=== PATIENT | female | born 1970 | race Caucasian/White ===

== ENCOUNTER 2016-06-22 09:58 | Emergency (ER) | payer MEDICAID ==
[~2016-06-22] VITALS: Ht 152.4 cm; Wt 114.1 kg
[~2016-06-22 09:58] MED LIST: ALBU0.63 NEB; ALBU6.7H INH; ALBU8.5H5 INH; FLUO40CA9 PO; FLUT12AE INH; FLUT1DIS IH; GABA600T2 PO; HYDR-3144 PO; HYDR25CA PO; IBUP200T5 PO; LEVO750T26 PO; LISI-170 PO; PRED20TA PO; TRAM200T2 PO; TRAZ100T15 PO; flexeril
[2016-06-22 10:04] VITALS: BP 165/105
[2016-06-22] MEDS ORDERED: KETOROLAC 30 MG/1 ML ONE (10:56)
[2016-06-22] MEDS ORDERED: KETOROLAC 30 MG/1 ML IM ONE (11:00)
== END 2016-06-22 11:57 | disposition home or self-care (01) ==
LOC: ED 11:52
DX: S83.92XA Sprain of unspecified site of left knee, initial encounter (principal); S39.012A Strain of muscle, fascia and tendon of lower back, initial encounter; L02.416 Cutaneous abscess of left lower limb; I10 Essential (primary) hypertension; J44.9 Chronic obstructive pulmonary disease, unspecified; Z90.49 Acquired absence of other specified parts of digestive tract; F17.200 Nicotine dependence, unspecified, uncomplicated; W07.XXXA Fall from chair, initial encounter; Y93.89 Activity, other specified; Y92.009 Unspecified place in unspecified non-institutional (private) residence as the place of occurrence of the external cause; Y99.9 Unspecified external cause status
CPT/HCPCS: 29505; 72110; 72170; 73564; 96372; 99284; J1885

== ENCOUNTER 2016-08-05 03:04 | Emergency (ER) | payer MEDICAID ==
[~2016-08-05] VITALS: Ht 152.4 cm; Wt 102.0 kg
[2016-08-05] MEDS ORDERED: LISI-167 PO (03:19)
[2016-08-05] MEDS ORDERED: NAPR220C PO (03:19)
[2016-08-05] MEDS ORDERED: GABA300C10 PO (03:19)
[2016-08-05] MEDS ORDERED: MORPHINE SULFATE 4 MG/ML, 1ML IVPush ONE (03:30)
[2016-08-05] MEDS ORDERED: MORPHINE SULFATE 4 MG/ML, 1ML ONE (03:37)
[2016-08-05 05:17] VITALS: BP 132/72
== END 2016-08-05 05:20 | disposition home or self-care (01) ==
LOC: ED 05:09
DX: M54.16 Radiculopathy, lumbar region (principal); I10 Essential (primary) hypertension; J44.9 Chronic obstructive pulmonary disease, unspecified
CPT/HCPCS: 96374

== ENCOUNTER 2018-03-11 09:32 | Emergency (ER) | payer MEDICAID ==
[~2018-03-11] VITALS: Ht 152.4 cm; Wt 100.0 kg
[~2018-03-11 09:32] MED LIST changes: +GABA300C10 PO; -HYDR-3144 PO; +HYDR-3245 PO; +IBUP-1484 PO; -IBUP200T5 PO; +LISI-167 PO; +NAPR220C PO; -TRAM200T2 PO; +TRAM200T35 PO; +TRAZ-137 PO; -TRAZ100T15 PO
[2018-03-11] MEDS ORDERED: ALUMINUM/MAG/SIMETHICONE 30 ML UDC ONE (09:49)
[2018-03-11] MEDS ORDERED: FAMOTIDINE 20 MG TABLET ONE (09:49)
[2018-03-11] MEDS ORDERED: HYDROmorphone 2 MG/ML, 1ML ONE (09:50)
[2018-03-11] MEDS ORDERED: HYDROmorphone 1 MG/ML, 1ML IM ONE (10:00)
[2018-03-11] MEDS ORDERED: ALUMINUM/MAG/SIMETHICONE 30 ML UDC PO PRN (10:00)
[2018-03-11] MEDS ORDERED: FAMOTIDINE 20 MG TABLET PO ONE (10:00)
[2018-03-11 10:42] VITALS: BP 153/79
== END 2018-03-11 11:48 | disposition home or self-care (01) ==
LOC: ED 09:56
DX: S76.211A Strain of adductor muscle, fascia and tendon of right thigh, initial encounter (principal); I10 Essential (primary) hypertension; J44.9 Chronic obstructive pulmonary disease, unspecified; F31.9 Bipolar disorder, unspecified; F41.1 Generalized anxiety disorder; Z90.49 Acquired absence of other specified parts of digestive tract; X58.XXXA Exposure to other specified factors, initial encounter; Y93.89 Activity, other specified; Y92.89 Other specified places as the place of occurrence of the external cause; Y99.8 Other external cause status
CPT/HCPCS: 73502; 96372; 99283; J1170

== ENCOUNTER 2018-03-20 11:29 | Emergency (ER) | payer MEDICAID ==
[~2018-03-20] VITALS: Ht 152.4 cm; Wt 106.1 kg
[2018-03-20 11:41] VITALS: BP 165/77
--- NOTE | 2018-03-20 12:01 | NUR ---
PT TO ROOM 7 W/ C/O BILAT HIP PAIN AND R HAND PAIN AFTER FALLING ON 03/11/18. PT VERBALIZES SHE IS CONCERNED THAT THERE IS SOMETHING WRONG W/ HER HAND. PT AMBULATORY W/ STEADY GAIT. FULL ROM TO BILAT LEGS. PT RESTING ON GURNEY. NADN. WARM BLANKET PROVIDED.
[2018-03-20] MEDS ORDERED: KETOROLAC 30 MG/1 ML ONE (12:15)
[2018-03-20] MEDS ORDERED: METHOCARBAMOL 750 MG TABLET ONE (12:15)
--- NOTE | 2018-03-20 12:21 | NUR ---
PT MEDICATED PER MAR AND TAKEN FOR XR.
[2018-03-20] MEDS ORDERED: KETOROLAC 30 MG/1 ML IM ONE (12:30)
[2018-03-20] MEDS ORDERED: METHOCARBAMOL 750 MG TABLET PO ONE (12:30)
--- NOTE | 2018-03-20 12:52 | NUR ---
PT CHART REVIEWED AND PLACED FOR RECHECK.
== END 2018-03-20 13:06 | disposition home or self-care (01) ==
LOC: ED 12:16
DX: S60.221A Contusion of right hand, initial encounter (principal); M51.36 Other intervertebral disc degeneration, lumbar region; I10 Essential (primary) hypertension; J43.9 Emphysema, unspecified; Z90.49 Acquired absence of other specified parts of digestive tract; F17.200 Nicotine dependence, unspecified, uncomplicated; W18.30XA Fall on same level, unspecified, initial encounter; Y93.89 Activity, other specified; Y92.89 Other specified places as the place of occurrence of the external cause; Y99.8 Other external cause status
CPT/HCPCS: 72110; 96372; 99283; J1885

== ENCOUNTER 2018-04-05 18:52 | Inpatient (IN) | payer MEDICAID ==
[~2018-04-05] VITALS: Ht 162.6 cm; Wt 105.0 kg
[~2018-04-05 18:52] MED LIST changes: -GABA600T2 PO; +GABA600T7 PO
[2018-04-05] MEDS ORDERED: MAALOX/HYOSCYAMINE/LIDOCAINE 45 ML BTL ONE (18:54)
[2018-04-05] MEDS ORDERED: FAMOTIDINE 20 MG/2 ML ONE (18:54)
[2018-04-05] MEDS ORDERED: ONDANSETRON 2MG/ML, 2ML ONE ×2 (18:54→21:13)
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
[2018-04-05] MEDS ORDERED: ONDANSETRON 2MG/ML, 2ML IVPush ONE (19:00)
[2018-04-05] MEDS ORDERED: MAALOX/HYOSCYAMINE/LIDOCAINE 45 ML BTL PO ONE (19:00)
[2018-04-05] MEDS ORDERED: FAMOTIDINE 20 MG/2 ML IVP ONE (19:00)
[2018-04-05] MEDS ORDERED: SODIUM CHLORIDE FLUSH 10ML SYR IVF ONE (19:00)
--- NOTE | 2018-04-05 19:02 | NUR ---
REPORT GIVEN TO SENTHIL MAS.
[2018-04-05 19:05] LABS: MEAN CORPUSCULAR HEMOGLOBIN 30.4 pg (27.0-34.8); MEAN CORPUSCULAR HGB CONC 33.5 g/dL (32.4-35.8); MEAN CORPUSCULAR VOLUME 90.6 fL (80-100); MEAN PLATELET VOLUME 8.5 fL (7.4-10.4); PLATELET COUNT 485 x10^3/uL (130-400); RED BLOOD COUNT 4.99 x10^6/uL (3.82-5.3)
--- NOTE | 2018-04-05 19:21 | NUR ---
PT STATES MEDICATION NOT DECREASING PAIN AND WOULD LIKE MORE PAIN MEDICATION. MD NOTIFIED. AWAITING NEW ORDERS.
[2018-04-05 19:25] LABS: ALANINE AMINOTRANSFERASE 27 U/L (12-78); ANION GAP 7 mmol/L (5-15); CALCIUM 8.7 mg/dL (8.5-10.1); CHLORIDE 105 mmol/L (98-107); CREATININE 0.94 mg/dL (0.55-1.02)
[2018-04-05 19:28] LABS: ALKALINE PHOSPHATASE 94 U/L (45-117); BILIRUBIN,TOTAL 0.3 mg/dL (0.2-1.0)
[2018-04-05 19:30] LABS: MD YES
[2018-04-05] MEDS ORDERED: MORPHINE SULFATE 4 MG/ML, 1ML ONE ×3 (19:32→20:58)
[2018-04-05 19:33] LABS: BAND#(MANUAL) 1.02 x10^3/uL; BANDS%(MANUAL) 4 % (0-7); EOS#(MANUAL) 0.25 x10^3/uL (0.0-0.4); EOS% (MANUAL) 1 % (1-7); LYMPH#(MANUAL) 3.05 x10^3/uL (1-3.4); LYMPHS% (MANUAL) 12 % (22-44); MONOS#(MANUAL) 1.78 x10^3/uL (0.3-2.7); MONOS% (MANUAL) 7 % (2-9); SEGS% (MANUAL) 76 % (42-75)
[2018-04-05 19:34] LABS: <PLATELET ESTIMATE> INCREASED; <PLT MORPHOLOGY> NORMAL PLT MORPH; <RBC MORPHOLOGY> NORMAL; PMNS WITH VACUOLES 1+
[2018-04-05] MEDS: MORPHINE SULFATE 4 MG/ML, 1ML IVPush PRN ×2 (19:34→19:51)
--- NOTE | 2018-04-05 19:49 | NUR ---
PT FOUND IN ROOM W/ GOWN OFF MULTIPLE TIMES AND THIS RN REAPPLYING VITALS EQUIPMENT OVER AND OVER. PT EDUCATED ON NEED FOR MONITORING STATES "IM SORRY HUN, IT JUST HURTS SO DAMN BAD." PT FOUND MULTIPLE TIMES SCREAMING INTO HALLWAY "IN PAIN." W/ CALL LIGHT NEXT TO HER ON BED. REMINDED OF FUNCTION OF CALL LIGHT. PT GIVEN 4 MG MORE OF MORPHINE IV PER MD ORDER AT THIS TIME. PT TO CT.
[2018-04-05] MEDS ORDERED: OMNIPAQUE 350 MG/ML, 100ML BOTTLE ONE (20:00)
--- NOTE | 2018-04-05 20:51 | NUR ---
5 LEAD OFF PT AGAIN. THIS RN REAPPLIED AND INSTRUCTED PT TO KEEP LEADS ON. PT STATES IN INCREASING PAIN AGAIN. MD NOTIFIED. MD ORDERED 4 MG MORPHINE. THIS RN TO GIVE.
--- NOTE | 2018-04-05 20:51 | NUR ---
PT STATES LAST ORAL INTAKE "YESTERDAY SOMETIME"
[2018-04-05] MEDS ORDERED: PIPERACILLIN/TAZO/PMX 3.375GM 50 ML ONE (21:00)
[2018-04-05] MEDS ORDERED: VANCOMYCIN PER PHARMACY MC PRN (21:00)
[2018-04-05] MEDS ORDERED: MORPHINE SULFATE 4 MG/ML, 1ML IVPush PRN (21:00)
[2018-04-05] MEDS ORDERED: PIPERACILLIN/TAZO/PMX 3.375GM 50 ML IV ONE (21:00)
[2018-04-05] MEDS ORDERED: FENTANYL PF 250 MCG/5ML ONE ×2 (21:10→23:05)
[2018-04-05] MEDS ORDERED: MIDAZOLAM 1 MG/ML, 2ML ONE (21:10)
[2018-04-05] MEDS ORDERED: DEXAMETHASONE 4 MG/ML, 1ML ONE (21:13)
[2018-04-05] MEDS ORDERED: PHENYLEPHRINE 10 MG/ML ONE (21:13)
[2018-04-05] MEDS ORDERED: LIDOCAINE-MPF 2% ,5ML ONE (21:13)
[2018-04-05] MEDS ORDERED: PROPOFOL 10 MG/ML, 20ML ONE (21:13)
[2018-04-05] MEDS ORDERED: ROCURONIUM 10MG/ML,5ML ONE (21:13)
--- NOTE | 2018-04-05 21:14 | NUR ---
OR CALLED FOR REPORT AND STATES [facility] WILL PICK PT UP IN "5-10 MINUTES". AWAITING BLOOD CULTURES FOR ABX ADMIN.
--- NOTE | 2018-04-05 21:15 | NUR ---
CULTURES DONE. JOSSELINE INITIATED PER MAY.
[2018-04-05] MEDS ORDERED: VANCOMYCIN 2,000 MG in SODIUM CHLORIDE 0.9% 500 ML IV ONE (21:30)
[2018-04-05] MEDS ORDERED: PHARMACOKINETIC CONSULTATION MC ONE (21:30)
[2018-04-05] MEDS ORDERED: PROMETHAZINE 25 MG/ML, 1ML IV PRN (22:00)
[2018-04-05] MEDS ORDERED: HALOPERIDOL 5 MG/ML IV PRN (22:00)
[2018-04-05] MEDS ORDERED: MEPERIDINE/PF 25MG/0.5ML IVPush PRN (22:00)
[2018-04-05] MEDS ORDERED: METOPROLOL 1 MG/ML, 5ML IV PRN (22:00)
[2018-04-05] MEDS ORDERED: LORazepam 2 MG/ML, 1ML IVPush PRN (22:00)
[2018-04-05] MEDS ORDERED: ALBUTEROL/IPRATROPIUM 2.5MG/0.5MG, 3 ML NPPB PRN (22:00)
[2018-04-05] MEDS ORDERED: FENTANYL PF 100 MCG/2ML ONE (22:16)
[2018-04-05] MEDS ORDERED: HYDROmorphone 2 MG/ML, 1ML ONE (22:17)
[2018-04-05] MEDS ORDERED: ALBUTEROL HFA 90 MCG/SPRAY ONE (23:33)
[2018-04-05] MEDS ORDERED: GLYCOPYRROLATE 0.4 MG/2 ML, 2ML ONE (23:36)
[2018-04-05] MEDS ORDERED: NEOSTIGMINE 1 MG/ML, 10ML ONE (23:36)
[2018-04-06] MEDS: HYDROmorphone 2 MG/ML, 1ML IVPush PRN ×3 (00:10→00:45)
[2018-04-06] MEDS: FENTANYL PF 100 MCG/2ML IV PRN ×2 (00:15→00:50)
[2018-04-06 02:00] VITALS: BP 116/79
[2018-04-06] MEDS ORDERED: ENALAPRILAT 1.25 MG/ML, 2ML IV PRN (02:30)
[2018-04-06] MEDS: D5%-0.45NACL+KCL 20MEQ 1,000 ML IV SCH ×3 (02:56→21:50)
[2018-04-06] MEDS: PIPERACILLIN/TAZO/PMX 3.375GM 50 ML IV SCH ×4 (02:57→20:20)
[2018-04-06] MEDS: PANTOPRAZOLE 40 MG IV IVPush SCH ×2 (03:02→14:49)
[2018-04-06 04:03] LABS: CULTURE INDICATED? NO; MICROSCOPIC AUTO
[2018-04-06 05:29] LABS: ALBUMIN 3.3 g/dL (3.4-5.0); ANION GAP 8 mmol/L (5-15); CALCIUM 8.3 mg/dL (8.5-10.1); CHLORIDE 105 mmol/L (98-107)
[2018-04-06 05:32] LABS: ALANINE AMINOTRANSFERASE 38 U/L (12-78); ALKALINE PHOSPHATASE 79 U/L (45-117); BILIRUBIN,TOTAL 0.6 mg/dL (0.2-1.0); CREATININE 0.88 mg/dL (0.55-1.02); TOTAL PROTEIN 6.6 g/dL (6.4-8.2)
[2018-04-06 05:34] LABS: MEAN CORPUSCULAR HEMOGLOBIN 30.1 pg (27.0-34.8); MEAN CORPUSCULAR HGB CONC 32.8 g/dL (32.4-35.8); MEAN CORPUSCULAR VOLUME 91.7 fL (80-100); MEAN PLATELET VOLUME 8.7 fL (7.4-10.4); PLATELET COUNT 388 x10^3/uL (130-400); RED BLOOD COUNT 4.52 x10^6/uL (3.82-5.3); RED CELL DISTRIBUTION WIDTH 14.8 % (9.6-15.2)
[2018-04-06 05:59] LABS: MD YES
[2018-04-06 06:00] LABS: LYMPHS% (MANUAL) 2 % (22-44); SEG#(MANUAL) 22.91 x10^3/uL (1.8-6.8); SEGS% (MANUAL) 92 % (42-75)
[2018-04-06 06:01] LABS: <RBC MORPHOLOGY> NORMAL; BANDS%(MANUAL) 4 % (0-7); MONOS% (MANUAL) 2 % (2-9)
[2018-04-06 06:02] LABS: <PLATELET ESTIMATE> ADEQUATE; <PLT MORPHOLOGY> NORMAL PLT MORPH
[2018-04-06 06:39] VITALS: BP 124/80
[2018-04-06 12:31] VITALS: BP 119/78
[2018-04-06] MEDS: NICOTINE 14MG/24 HR PATCH.TD24 TD SCH (13:42)
[2018-04-06 18:59] VITALS: BP 165/79
[2018-04-06] MEDS: ENOXAPARIN 30 MG/0.3 ML SQ SCH (20:21)
[2018-04-07] MEDS: PANTOPRAZOLE 40 MG IV IVPush SCH ×2 (01:55→16:08)
[2018-04-07] MEDS: PIPERACILLIN/TAZO/PMX 3.375GM 50 ML IV SCH ×4 (02:10→21:48)
[2018-04-07 03:20] VITALS: BP 129/78
[2018-04-07] MEDS: D5%-0.45NACL+KCL 20MEQ 1,000 ML IV SCH ×2 (06:20→16:08)
[2018-04-07 07:17] VITALS: BP 101/63
[2018-04-07 07:33] LABS: BASOPHILS # (AUTO) 0.07 x10^3/uL (0-0.1); BASOPHILS % (AUTO) 0 % (0-1); EOSINOPHILS # (AUTO) 0.24 x10^3/uL (0-0.4); EOSINOPHILS % (AUTO) 1 % (1-7); LYMPHOCYTES # (AUTO) 1.14 x10^3/uL (1-3.4); LYMPHOCYTES % (AUTO) 7 % (22-44); MD NO; MEAN CORPUSCULAR HEMOGLOBIN 29.7 pg (27.0-34.8); MEAN CORPUSCULAR HGB CONC 32.6 g/dL (32.4-35.8); MEAN CORPUSCULAR VOLUME 91.3 fL (80-100); MEAN PLATELET VOLUME 8.3 fL (7.4-10.4); MONOCYTES # (AUTO) 1.25 x10^3/uL (0.2-0.8); MONOCYTES % (AUTO) 7 % (2-9); NEUTROPHILS # (AUTO) 14.48 x10^3/uL (1.8-6.8); NEUTROPHILS % (AUTO) 84 % (42-75); PLATELET COUNT 378 x10^3/uL (130-400); RED CELL DISTRIBUTION WIDTH 15.3 % (9.6-15.2)
[2018-04-07 07:40] LABS: ANION GAP 5 mmol/L (5-15); CALCIUM 8.2 mg/dL (8.5-10.1); CHLORIDE 105 mmol/L (98-107); CREATININE 0.71 mg/dL (0.55-1.02)
[2018-04-07] MEDS: ONDANSETRON 2MG/ML, 2ML IV PRN ×2 (07:40→13:34)
[2018-04-07] MEDS: ENOXAPARIN 30 MG/0.3 ML SQ SCH ×2 (07:40→21:22)
[2018-04-07] MEDS ORDERED: ALBUTEROL SULFATE 2.5 MG/3 ML HHN PRN (10:00)
[2018-04-07] MEDS: GABAPENTIN 300 MG CAPSULE PO SCH ×3 (10:42→21:22)
[2018-04-07] MEDS: HYDROXYZINE PAMOATE 50MG CAP PO SCH ×2 (10:43→21:48)
[2018-04-07] MEDS: FLUOXETINE HCL 20 MG CAPSULE PO SCH ×2 (10:43→21:49)
[2018-04-07] MEDS: NICOTINE 14MG/24 HR PATCH.TD24 TD SCH (13:34)
[2018-04-07 14:26] VITALS: BP 124/69
[2018-04-07 15:03] VITALS: BP 116/59
[2018-04-07] MEDS ORDERED: HALOPERIDOL 5 MG/ML ONE (15:43)
[2018-04-07] MEDS ORDERED: HALOPERIDOL 5 MG/ML IM STA (15:47)
[2018-04-07] MEDS ORDERED: GABAPENTIN 300 MG CAPSULE PO SCH (16:00)
[2018-04-07 16:39] LABS: AMPHETAMINE SCREEN, URINE Positive (Negative); BARBITURATE SCREEN, URINE Negative (Negative); BENZODIAZEPINE SCREEN, URINE Negative (Negative); CANNABINOID SCREEN, URINE Positive (Negative); COCAINE SCREEN, URINE Negative (Negative); METHADONE SCREEN, URINE Negative (Negative); OPIATE SCREEN, URINE Positive (Negative)
[2018-04-07 18:52] VITALS: BP 118/76
[2018-04-07] MEDS ORDERED: HYDROXYZINE PAMOATE 50MG CAP PO SCH (21:00)
[2018-04-08] MEDS ORDERED: HALOPERIDOL 5 MG/ML IM PRN
[2018-04-08 01:28] VITALS: BP 134/84
[2018-04-08] MEDS: D5%-0.45NACL+KCL 20MEQ 1,000 ML IV SCH (03:30)
[2018-04-08] MEDS: PIPERACILLIN/TAZO/PMX 3.375GM 50 ML IV SCH ×4 (03:32→21:05)
[2018-04-08] MEDS: PANTOPRAZOLE 40 MG IV IVPush SCH ×2 (04:12→15:36)
[2018-04-08 05:45] LABS: BASOPHILS # (AUTO) 0.01 x10^3/uL (0-0.1); BASOPHILS % (AUTO) 0 % (0-1); EOSINOPHILS % (AUTO) 7 % (1-7); LYMPHOCYTES # (AUTO) 1.34 x10^3/uL (1-3.4); LYMPHOCYTES % (AUTO) 11 % (22-44); MD NO; MEAN CORPUSCULAR HEMOGLOBIN 30.7 pg (27.0-34.8); MEAN CORPUSCULAR HGB CONC 33.5 g/dL (32.4-35.8); MEAN CORPUSCULAR VOLUME 91.7 fL (80-100); MEAN PLATELET VOLUME 8.4 fL (7.4-10.4); MONOCYTES # (AUTO) 0.52 x10^3/uL (0.2-0.8); MONOCYTES % (AUTO) 4 % (2-9); NEUTROPHILS # (AUTO) 9.52 x10^3/uL (1.8-6.8); NEUTROPHILS % (AUTO) 78 % (42-75); PLATELET COUNT 351 x10^3/uL (130-400); RED BLOOD COUNT 3.96 x10^6/uL (3.82-5.3); RED CELL DISTRIBUTION WIDTH 15.1 % (9.6-15.2)
[2018-04-08 05:55] LABS: ANION GAP 7 mmol/L (5-15); CALCIUM 8.6 mg/dL (8.5-10.1); CHLORIDE 103 mmol/L (98-107)
[2018-04-08 07:00] VITALS: BP 121/71
[2018-04-08] MEDS: GABAPENTIN 300 MG CAPSULE PO SCH ×3 (08:01→21:04)
[2018-04-08] MEDS: FLUOXETINE HCL 20 MG CAPSULE PO SCH ×2 (08:02→21:04)
[2018-04-08] MEDS: HYDROXYZINE PAMOATE 50MG CAP PO SCH ×2 (08:02→21:04)
[2018-04-08] MEDS: ENOXAPARIN 30 MG/0.3 ML SQ SCH ×2 (08:02→21:04)
[2018-04-08] MEDS ORDERED: FLUOXETINE HCL 20 MG CAPSULE PO SCH (09:00)
[2018-04-08] MEDS ORDERED: D5%-0.45NACL+KCL 20MEQ 1,000 ML IV SCH ×2 (09:00)
[2018-04-08 13:17] VITALS: BP 123/82
[2018-04-08] MEDS: NICOTINE 14MG/24 HR PATCH.TD24 TD SCH (14:46)
[2018-04-08 18:37] VITALS: BP 117/66
[2018-04-09 01:04] VITALS: BP 117/68
[2018-04-09] MEDS: PIPERACILLIN/TAZO/PMX 3.375GM 50 ML IV SCH ×4 (03:25→21:20)
[2018-04-09] MEDS: PANTOPRAZOLE 40 MG IV IVPush SCH (04:30)
[2018-04-09 06:37] VITALS: BP 126/77
[2018-04-09 07:15] LABS: BASOPHILS # (AUTO) 0.13 x10^3/uL (0-0.1); BASOPHILS % (AUTO) 1 % (0-1); EOSINOPHILS # (AUTO) 1.16 x10^3/uL (0-0.4); EOSINOPHILS % (AUTO) 10 % (1-7); LYMPHOCYTES # (AUTO) 1.55 x10^3/uL (1-3.4); LYMPHOCYTES % (AUTO) 14 % (22-44); MD NO; MEAN CORPUSCULAR HEMOGLOBIN 29.9 pg (27.0-34.8); MEAN CORPUSCULAR HGB CONC 33.1 g/dL (32.4-35.8); MEAN CORPUSCULAR VOLUME 90.4 fL (80-100); MEAN PLATELET VOLUME 8.2 fL (7.4-10.4); MONOCYTES % (AUTO) 8 % (2-9); NEUTROPHILS # (AUTO) 7.51 x10^3/uL (1.8-6.8); NEUTROPHILS % (AUTO) 67 % (42-75); PLATELET COUNT 437 x10^3/uL (130-400); RED BLOOD COUNT 4.07 x10^6/uL (3.82-5.3); RED CELL DISTRIBUTION WIDTH 14.8 % (9.6-15.2)
[2018-04-09] MEDS ORDERED: BISACODYL 10 MG SUPP PR PRN (08:00)
[2018-04-09] MEDS ORDERED: BISACODYL 10 MG SUPP PR ONE (09:00)
[2018-04-09 09:04] LABS: ANION GAP 6 mmol/L (5-15); CALCIUM 9.1 mg/dL (8.5-10.1); CHLORIDE 101 mmol/L (98-107); CREATININE 0.64 mg/dL (0.55-1.02)
[2018-04-09] MEDS: GABAPENTIN 300 MG CAPSULE PO SCH ×3 (09:16→21:19)
[2018-04-09] MEDS: ENOXAPARIN 30 MG/0.3 ML SQ SCH ×2 (09:16→21:19)
[2018-04-09] MEDS: FAMOTIDINE 20 MG TABLET PO SCH ×2 (09:17→21:19)
[2018-04-09] MEDS: FLUOXETINE HCL 20 MG CAPSULE PO SCH ×2 (09:17→21:20)
[2018-04-09] MEDS: HYDROXYZINE PAMOATE 50MG CAP PO SCH ×2 (09:17→21:19)
[2018-04-09] MEDS: SODIUM CHLORIDE FLUSH 3ML SYRINGE IVF SCH ×2 (09:17→21:00)
[2018-04-09] MEDS: OXYcodone/APAP 5/325MG TABLET PO PRN ×3 (12:54→21:19)
[2018-04-09 13:15] VITALS: BP 122/72
[2018-04-09] MEDS: NICOTINE 14MG/24 HR PATCH.TD24 TD SCH (15:43)
[2018-04-09 19:17] VITALS: BP 136/79
[2018-04-10] MEDS: OXYcodone/APAP 5/325MG TABLET PO PRN (01:45)
[2018-04-10 01:52] VITALS: BP 160/87
[2018-04-10] MEDS: PIPERACILLIN/TAZO/PMX 3.375GM 50 ML IV SCH ×4 (03:08→20:39)
[2018-04-10 05:09] LABS: BASOPHILS # (AUTO) 0.12 x10^3/uL (0-0.1); BASOPHILS % (AUTO) 1 % (0-1); EOSINOPHILS # (AUTO) 1.01 x10^3/uL (0-0.4); EOSINOPHILS % (AUTO) 8 % (1-7); LYMPHOCYTES # (AUTO) 1.48 x10^3/uL (1-3.4); LYMPHOCYTES % (AUTO) 11 % (22-44); MD NO; MEAN CORPUSCULAR HEMOGLOBIN 30.3 pg (27.0-34.8); MEAN CORPUSCULAR HGB CONC 33.7 g/dL (32.4-35.8); MEAN CORPUSCULAR VOLUME 89.9 fL (80-100); MEAN PLATELET VOLUME 8.4 fL (7.4-10.4); MONOCYTES # (AUTO) 1.01 x10^3/uL (0.2-0.8); MONOCYTES % (AUTO) 8 % (2-9); NEUTROPHILS % (AUTO) 73 % (42-75); PLATELET COUNT 469 x10^3/uL (130-400); RED BLOOD COUNT 4.16 x10^6/uL (3.82-5.3); RED CELL DISTRIBUTION WIDTH 14.4 % (9.6-15.2)
[2018-04-10 05:18] LABS: ANION GAP 10 mmol/L (5-15); CALCIUM 9.2 mg/dL (8.5-10.1); CHLORIDE 103 mmol/L (98-107); CREATININE 0.63 mg/dL (0.55-1.02)
[2018-04-10] MEDS: ONDANSETRON 2MG/ML, 2ML IV PRN (05:28)
[2018-04-10] MEDS: MORPHINE SULFATE 4 MG/ML, 1ML IV PRN ×2 (05:29→06:07)
[2018-04-10 07:11] VITALS: BP 141/85
[2018-04-10] MEDS: FLUOXETINE HCL 20 MG CAPSULE PO SCH ×2 (08:19→20:40)
[2018-04-10] MEDS: FAMOTIDINE 20 MG TABLET PO SCH ×2 (08:20→20:40)
[2018-04-10] MEDS: HYDROXYZINE PAMOATE 50MG CAP PO SCH ×2 (08:20→20:40)
[2018-04-10] MEDS: GABAPENTIN 300 MG CAPSULE PO SCH ×3 (08:20→20:39)
[2018-04-10] MEDS: ENOXAPARIN 30 MG/0.3 ML SQ SCH ×2 (08:20→20:40)
[2018-04-10] MEDS: SODIUM CHLORIDE FLUSH 3ML SYRINGE IVF SCH ×2 (08:24→21:00)
[2018-04-10] MEDS: OXYcodone IR 5MG TABLET PO PRN ×4 (09:33→20:40)
[2018-04-10 14:24] VITALS: BP 137/68
[2018-04-10] MEDS: NICOTINE 14MG/24 HR PATCH.TD24 TD SCH (15:00)
[2018-04-10 18:45] VITALS: BP 137/74
[2018-04-11] MEDS: OXYcodone IR 5MG TABLET PO PRN ×5 (00:14→12:05)
[2018-04-11 02:10] VITALS: BP 142/88
[2018-04-11] MEDS: PIPERACILLIN/TAZO/PMX 3.375GM 50 ML IV SCH ×2 (03:00→08:21)
[2018-04-11 07:15] VITALS: BP 145/84
[2018-04-11] MEDS: FLUOXETINE HCL 20 MG CAPSULE PO SCH (08:20)
[2018-04-11] MEDS: HYDROXYZINE PAMOATE 50MG CAP PO SCH (08:20)
[2018-04-11] MEDS: ENOXAPARIN 30 MG/0.3 ML SQ SCH (08:21)
[2018-04-11] MEDS: SODIUM CHLORIDE FLUSH 3ML SYRINGE IVF SCH (08:21)
[2018-04-11] MEDS: GABAPENTIN 300 MG CAPSULE PO SCH (08:21)
[2018-04-11] MEDS: FAMOTIDINE 20 MG TABLET PO SCH (08:21)
[2018-04-11] MEDS: NICOTINE 14MG/24 HR PATCH.TD24 TD SCH (09:46)
[2018-04-11] MEDS ORDERED: FLUCONAZOLE 40 MG/ML ORAL SUSP PO SCH (10:30)
[2018-04-11 12:12] VITALS: BP 150/77
[2018-04-11] MEDS ORDERED: OXYC5CAP2 PO (12:19)
[2018-04-11] MEDS ORDERED: FLUC200T PO (12:21)
[2018-04-11] MEDS ORDERED: OMEP-110 PO (12:21)
== END 2018-04-11 13:09 | disposition home or self-care (01) | DRG 326 ==
LOC: ED 19:32 → EDIP 21:26 → 4NOR 04-06 00:12 → DCLOUNGE 04-11 12:37
PROVIDERS: ADMIT Surgery; ATTEND Surgery
PROC: 03HY32Z Insertion of Monitoring Device into Upper Artery, Percutaneous Approach (ICD-10-PCS; 2018-04-05)
PROC: 0DB60ZZ Excision of Stomach, Open Approach (ICD-10-PCS; 2018-04-05)
PROC: 0DU907Z Supplement Duodenum with Autologous Tissue Substitute, Open Approach (ICD-10-PCS; principal; 2018-04-05 21:00)
DX: K63.1 Perforation of intestine (nontraumatic) (principal); K25.5 Chronic or unspecified gastric ulcer with perforation; K65.9 Peritonitis, unspecified; F23 Brief psychotic disorder; E66.01 Morbid (severe) obesity due to excess calories; F12.90 Cannabis use, unspecified, uncomplicated; F17.210 Nicotine dependence, cigarettes, uncomplicated; F31.9 Bipolar disorder, unspecified; F41.1 Generalized anxiety disorder; I10 Essential (primary) hypertension; J44.9 Chronic obstructive pulmonary disease, unspecified; K42.9 Umbilical hernia without obstruction or gangrene; Z87.11 Personal history of peptic ulcer disease; Z68.39 Body mass index [BMI] 39.0-39.9, adult; Z90.49 Acquired absence of other specified parts of digestive tract
CPT/HCPCS: 36415; 84145; 99285; J3490; 74177; 80048; 80053; 80307; 81001; 81025; 82140; 82330; 82803; 82947; 83605; 83690; 84132; 84295; 84443; 84703; 85014; 85025; 87040; 87070; 87075; 87205; 88305; 88341; 88342; 93005; 94640; 96374; 96375; C1729; G0378; J1100; J1170; J1650; J2250; J2270; J2405; J2543; J2704; J2710; J3010; Q9967; C9113; J1630; J2370; J3480

== ENCOUNTER 2018-06-24 16:04 | Emergency (ER) | payer MEDICAID ==
[~2018-06-24] VITALS: Ht 152.4 cm; Wt 95.0 kg
[~2018-06-24 16:04] MED LIST changes: +FLUC200T PO; -NAPR220C PO; +NAPR220C62 PO; +OMEP-110 PO; +OXYC5CAP2 PO
[2018-06-24 16:15] VITALS: BP 128/79
[2018-06-24] MEDS ORDERED: QUET300T5 PO (16:19)
--- NOTE | 2018-06-24 16:22 | NUR ---
PT TO ED FOR RIGHT SHOULDER PAIN X A FEW WEEKS. PT STATES CANNOT FIND A COMFORTABLE POSITION. CONNECTED TO MONITORS. VSS. PA ASSESSEMTN COMPLETE AND ORDERS RECEIVED.
[2018-06-24] MEDS ORDERED: CYCLOBENZAPRINE 10 MG TABLET ONE (16:26)
[2018-06-24] MEDS ORDERED: PLEASE ENTER HEIGHT AND WEIGHT MC SCH (16:30)
[2018-06-24] MEDS ORDERED: CYCLOBENZAPRINE 10 MG TABLET PO ONE (16:30)
== END 2018-06-24 17:04 | disposition home or self-care (01) ==
LOC: ED 16:53
DX: M62.830 Muscle spasm of back (principal); M62.838 Other muscle spasm; J44.9 Chronic obstructive pulmonary disease, unspecified; I10 Essential (primary) hypertension; F31.9 Bipolar disorder, unspecified; F41.1 Generalized anxiety disorder; Z90.49 Acquired absence of other specified parts of digestive tract
CPT/HCPCS: 99283

== ENCOUNTER 2018-07-01 11:31 | Emergency (ER) | payer MEDICAID ==
[~2018-07-01] VITALS: Ht 152.4 cm; Wt 103.0 kg
[~2018-07-01 11:31] MED LIST changes: +QUET300T5 PO
[2018-07-01 11:44] VITALS: BP 138/83
[2018-07-01] MEDS ORDERED: SODIUM CHLORIDE FLUSH 10ML SYR IVF ONE (12:00)
[2018-07-01 12:15] LABS: BASOPHILS # (AUTO) 0.04 x10^3/uL (0-0.1); BASOPHILS % (AUTO) 0 % (0-1); EOSINOPHILS # (AUTO) 0.78 x10^3/uL (0-0.4); EOSINOPHILS % (AUTO) 8 % (1-7); LYMPHOCYTES # (AUTO) 2.89 x10^3/uL (1-3.4); LYMPHOCYTES % (AUTO) 30 % (22-44); MD NO; MEAN CORPUSCULAR HEMOGLOBIN 28.6 pg (27.0-34.8); MEAN CORPUSCULAR HGB CONC 33.4 g/dL (32.4-35.8); MEAN CORPUSCULAR VOLUME 85.6 fL (80-100); MONOCYTES # (AUTO) 0.59 x10^3/uL (0.2-0.8); MONOCYTES % (AUTO) 6 % (2-9); NEUTROPHILS # (AUTO) 5.25 x10^3/uL (1.8-6.8); NEUTROPHILS % (AUTO) 55 % (42-75); PLATELET COUNT 453 x10^3/uL (130-400); RED BLOOD COUNT 4.79 x10^6/uL (3.82-5.3); RED CELL DISTRIBUTION WIDTH 14.1 % (9.6-15.2)
[2018-07-01 12:24] LABS: ALANINE AMINOTRANSFERASE 27 U/L (12-78); ALBUMIN 3.5 g/dL (3.4-5.0); ANION GAP 7 mmol/L (5-15); CALCIUM 8.8 mg/dL (8.5-10.1); CHLORIDE 106 mmol/L (98-107); CREATININE 0.89 mg/dL (0.55-1.02)
[2018-07-01 12:27] LABS: ALKALINE PHOSPHATASE 93 U/L (45-117); BILIRUBIN,TOTAL 0.2 mg/dL (0.2-1.0); TOTAL PROTEIN 7.2 g/dL (6.4-8.2)
--- NOTE | 2018-07-01 12:54 | NUR ---
POSTMASTER: PT TO ROOM FROM LOBBY, UPRIGHT STEADY GAIT.
--- NOTE | 2018-07-01 13:01 | NUR ---
PA EXAMINING PT
== END 2018-07-01 14:45 | disposition home or self-care (01) ==
LOC: ED 13:44
DX: M79.641 Pain in right hand (principal); R53.1 Weakness; F31.9 Bipolar disorder, unspecified; F41.1 Generalized anxiety disorder; I10 Essential (primary) hypertension; J43.9 Emphysema, unspecified; Z90.49 Acquired absence of other specified parts of digestive tract
CPT/HCPCS: 36415; 80053; 85025; 93005; 99284

== ENCOUNTER 2018-08-09 17:47 | Emergency (ER) | payer MEDICAID ==
[~2018-08-09] VITALS: Ht 157.5 cm; Wt 102.0 kg
[2018-08-09 19:19] LABS: BASOPHILS # (AUTO) 0.05 x10^3/uL (0-0.1); BASOPHILS % (AUTO) 1 % (0-1); EOSINOPHILS # (AUTO) 0.54 x10^3/uL (0-0.4); EOSINOPHILS % (AUTO) 6 % (1-7); LYMPHOCYTES # (AUTO) 2.83 x10^3/uL (1-3.4); LYMPHOCYTES % (AUTO) 30 % (22-44); MD NO; MEAN CORPUSCULAR HEMOGLOBIN 28.6 pg (27.0-34.8); MEAN CORPUSCULAR HGB CONC 32.7 g/dL (32.4-35.8); MEAN CORPUSCULAR VOLUME 87.5 fL (80-100); MEAN PLATELET VOLUME 8.1 fL (7.4-10.4); MONOCYTES # (AUTO) 0.91 x10^3/uL (0.2-0.8); MONOCYTES % (AUTO) 10 % (2-9); NEUTROPHILS # (AUTO) 5.17 x10^3/uL (1.8-6.8); NEUTROPHILS % (AUTO) 54 % (42-75); PLATELET COUNT 393 x10^3/uL (130-400); RED BLOOD COUNT 5.41 x10^6/uL (3.82-5.3); RED CELL DISTRIBUTION WIDTH 14.5 % (9.6-15.2)
[2018-08-09 19:24] LABS: ALANINE AMINOTRANSFERASE 39 U/L (12-78); ALBUMIN 3.8 g/dL (3.4-5.0); ANION GAP 8 mmol/L (5-15); CALCIUM 9.2 mg/dL (8.5-10.1); CHLORIDE 110 mmol/L (98-107); CREATININE 1.03 mg/dL (0.55-1.02)
[2018-08-09 19:28] LABS: ALKALINE PHOSPHATASE 105 U/L (45-117); BILIRUBIN,TOTAL 0.3 mg/dL (0.2-1.0); TOTAL PROTEIN 7.7 g/dL (6.4-8.2)
--- NOTE | 2018-08-09 19:37 | NUR ---
Pt found sleeping in lobby, pt woken up and escorted to room. Pt ambulated to bathroom, no assistance required, and urine sample requested. Education provided regarding clean catch technique.
--- NOTE | 2018-08-09 19:42 | NUR ---
Pt back to room, unable to provide urine sample at this time. [facility], at bedside to evaluate pt.
[2018-08-09] MEDS ORDERED: ONDANSETRON ODT 4 MG PO ONE (20:00)
[2018-08-09] MEDS ORDERED: METHOCARBAMOL 750 MG TABLET PO ONE (20:00)
--- NOTE | 2018-08-09 20:05 | NUR ---
Pt to imaging, with tech, via [facility]. Pt requesting pain medication, will notify SALBADOR Barker.
--- NOTE | 2018-08-09 20:17 | NUR ---
Pt back to room from imaging.
[2018-08-09] MEDS ORDERED: METHOCARBAMOL 750 MG TABLET ONE (20:23)
--- NOTE | 2018-08-09 20:26 | NUR ---
Pt medicated per MAR.
[2018-08-09 20:57] LABS: MICROSCOPIC AUTO
[2018-08-09 20:59] LABS: CULTURE INDICATED? YES
[2018-08-09 21:11] VITALS: BP 129/93
--- NOTE | 2018-08-09 21:11 | NUR ---
[facility], at bedside to discuss ED findings and POC.
[2018-08-09] MEDS ORDERED: KETOROLAC 30 MG/1 ML ONE (21:17)
[2018-08-09] MEDS ORDERED: KETOROLAC 30 MG/1 ML IM ONE (21:30)
== END 2018-08-09 21:42 | disposition home or self-care (01) ==
LOC: ED 19:41
DX: N30.01 Acute cystitis with hematuria (principal); S29.012A Strain of muscle and tendon of back wall of thorax, initial encounter; I10 Essential (primary) hypertension; J44.9 Chronic obstructive pulmonary disease, unspecified; F31.9 Bipolar disorder, unspecified; Z90.49 Acquired absence of other specified parts of digestive tract; X58.XXXA Exposure to other specified factors, initial encounter; Y93.89 Activity, other specified; Y92.89 Other specified places as the place of occurrence of the external cause; Y99.8 Other external cause status
CPT/HCPCS: 36415; 71046; 74176; 80053; 81001; 84703; 85025; 87086; 93005; 96372; 99284; J1885

== ENCOUNTER 2018-08-11 07:28 | Emergency (ER) | payer MEDICAID ==
[~2018-08-11] VITALS: Ht 157.5 cm; Wt 104.2 kg
[2018-08-11] MEDS ORDERED: METHOCARBAMOL 750 MG TABLET ONE (07:46)
[2018-08-11] MEDS ORDERED: KETOROLAC 30 MG/1 ML ONE (07:46)
[2018-08-11] MEDS ORDERED: METHOCARBAMOL 750 MG TABLET PO ONE (08:00)
[2018-08-11] MEDS ORDERED: KETOROLAC 30 MG/1 ML IVPush ONE (08:00)
[2018-08-11 08:36] LABS: BASOPHILS # (AUTO) 0.04 x10^3/uL (0-0.1); BASOPHILS % (AUTO) 1 % (0-1); EOSINOPHILS # (AUTO) 0.47 x10^3/uL (0-0.4); EOSINOPHILS % (AUTO) 6 % (1-7); LYMPHOCYTES # (AUTO) 1.91 x10^3/uL (1-3.4); LYMPHOCYTES % (AUTO) 23 % (22-44); MD NO; MEAN CORPUSCULAR HEMOGLOBIN 27.8 pg (27.0-34.8); MEAN CORPUSCULAR HGB CONC 31.7 g/dL (32.4-35.8); MEAN CORPUSCULAR VOLUME 87.7 fL (80-100); MEAN PLATELET VOLUME 7.9 fL (7.4-10.4); MONOCYTES # (AUTO) 0.64 x10^3/uL (0.2-0.8); MONOCYTES % (AUTO) 8 % (2-9); NEUTROPHILS # (AUTO) 5.38 x10^3/uL (1.8-6.8); NEUTROPHILS % (AUTO) 64 % (42-75); PLATELET COUNT 362 x10^3/uL (130-400); RED BLOOD COUNT 5.46 x10^6/uL (3.82-5.3); RED CELL DISTRIBUTION WIDTH 14.1 % (9.6-15.2)
[2018-08-11 08:45] LABS: ALBUMIN 3.9 g/dL (3.4-5.0); ANION GAP 7 mmol/L (5-15); CALCIUM 8.9 mg/dL (8.5-10.1); CHLORIDE 110 mmol/L (98-107); CREATININE 0.96 mg/dL (0.55-1.02)
[2018-08-11 09:12] LABS: MICROSCOPIC INDICATED
[2018-08-11 09:31] LABS: CULTURE INDICATED? YES
[2018-08-11 09:54] VITALS: BP 138/87
== END 2018-08-11 09:56 | disposition home or self-care (01) ==
LOC: ED 08:58
DX: N30.00 Acute cystitis without hematuria (principal); I10 Essential (primary) hypertension; F41.1 Generalized anxiety disorder; F17.210 Nicotine dependence, cigarettes, uncomplicated
CPT/HCPCS: 36415; 71046; 80048; 81001; 82040; 85025; 87086; 96374; 99284; J1885

== ENCOUNTER 2019-04-13 13:43 | Emergency (ER) | payer MEDICAID ==
[~2019-04-13] VITALS: Ht 152.4 cm; Wt 100.0 kg
[~2019-04-13 13:43] MED LIST changes: -ALBU6.7H INH; +ALBU6.7H8 INH; -IBUP-1484 PO; +IBUP-1902 PO
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
[2019-04-13] MEDS ORDERED: HALOPERIDOL 5 MG/ML ONE (14:45)
[2019-04-13] MEDS ORDERED: LORazepam 1MG TABLET ONE (14:45)
--- NOTE | 2019-04-13 14:53 | NUR ---
meds per mar. "i have bugs falling off of me". very agitated. vss. call bel in reach. fall precautions. as
[2019-04-13] MEDS ORDERED: LORazepam 1MG TABLET PO ONE (15:00)
[2019-04-13] MEDS ORDERED: HALOPERIDOL 5 MG/ML IM ONE (15:00)
[2019-04-13 15:10] LABS: BASOPHILS # (AUTO) 0.14 x10^3/uL (0-0.1); BASOPHILS % (AUTO) 1 % (0-1); EOSINOPHILS # (AUTO) 0.46 x10^3/uL (0-0.4); EOSINOPHILS % (AUTO) 5 % (1-7); LYMPHOCYTES # (AUTO) 2.33 x10^3/uL (1-3.4); LYMPHOCYTES % (AUTO) 24 % (22-44); MD NO; MEAN CORPUSCULAR HEMOGLOBIN 28.5 pg (27.0-34.8); MEAN CORPUSCULAR HGB CONC 32.7 g/dL (32.4-35.8); MEAN CORPUSCULAR VOLUME 87.1 fL (80-100); MEAN PLATELET VOLUME 7.6 fL (7.4-10.4); MONOCYTES # (AUTO) 0.91 x10^3/uL (0.2-0.8); MONOCYTES % (AUTO) 9 % (2-9); NEUTROPHILS # (AUTO) 5.98 x10^3/uL (1.8-6.8); NEUTROPHILS % (AUTO) 61 % (42-75); PLATELET COUNT 448 x10^3/uL (130-400); RED BLOOD COUNT 5.26 x10^6/uL (3.82-5.3); RED CELL DISTRIBUTION WIDTH 12.9 % (9.6-15.2)
--- NOTE | 2019-04-13 15:16 | NUR ---
continues to be agitated, given crackers per md. low light, minimal stimuli. as
[2019-04-13 15:21] LABS: ALBUMIN 3.8 g/dL (3.4-5.0); ANION GAP 10 mmol/L (5-15); CALCIUM 8.9 mg/dL (8.5-10.1); CHLORIDE 105 mmol/L (98-107); CREATININE 1.01 mg/dL (0.55-1.02); SALICYLATE LEVEL 4.4 mg/dL (2.8-20.0)
--- NOTE | 2019-04-13 15:36 | NUR ---
continues to see bugs and remains restless. cooperative. vss. c/o feeling hot, temp 98.6oral. call trujillo in reach, side rails x2. as
--- NOTE | 2019-04-13 16:12 | NUR ---
pt appears to be sleeping. report to manuel epps. as
[2019-04-13 16:46] VITALS: BP 114/53
== END 2019-04-13 16:55 ==
LOC: ED 15:51
DX: F15.251 Other stimulant dependence with stimulant-induced psychotic disorder with hallucinations (principal); F41.9 Anxiety disorder, unspecified; F17.210 Nicotine dependence, cigarettes, uncomplicated; I10 Essential (primary) hypertension; J43.9 Emphysema, unspecified
CPT/HCPCS: 36415; 80048; 80307; 82040; 85025; 93005; 96372; 99284; J1630

== ENCOUNTER 2019-04-25 13:58 | Emergency (ER) | payer MEDICAID ==
[~2019-04-25] VITALS: Ht 152.4 cm; Wt 100.0 kg
[~2019-04-25 13:58] MED LIST changes: -TRAZ-137 PO; +TRAZ-175 PO
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
--- NOTE | 2019-04-25 14:27 | NUR ---
ORDERS RECEIVED FOR CT. PT UPDATED ON POC. SITTER OUTSIDE ROOM. CALL LIGHT IN REACH.
--- NOTE | 2019-04-25 15:15 | NUR ---
TELEPHONE CALL TO CT REGARDING DELAY. STATES PT IS NEXT ON THE LIST.
--- NOTE | 2019-04-25 15:16 | NUR ---
REPORT GIVEN TO BALBINA NDIAYE. PT IS GETTING INCREASINLY AGITATED AND STATES SHE WILL LEAVE IF WE DONT GIVE HER PAIN MEDICINE. PT TO BE SEEN BY FRANKLIN BEFORE PLACED ON LEGAL HOLD. PT EDUCATED ON NEED FOR CT PRIOR TO MEDICATING.
--- NOTE | 2019-04-25 15:19 | NUR ---
REPORT RC'VD FROM TANGELA NDIAYE AND PT MOVED TO ROOM 38. SITTER OUTSIDE ROOM. POC RV'WD WITH PT. PT REQUESTING PAIN MEDICATION, ERP AWARE.
--- NOTE | 2019-04-25 15:50 | NUR ---
PT REFUSING TO PROVIDE URINE SAMPLE. STATES, "I'M NOT DOING THAT, I'LL JUST GO HOME THEN. I JUST WANT SOME PAIN RELIEF." FRANKLIN GRAY APRN NOTIFIED, WILL SEE PT.
[2019-04-25] MEDS ORDERED: KETOROLAC 30 MG/1 ML IVPush ONE (16:30)
--- NOTE | 2019-04-25 16:30 | NUR ---
FRANKLIN PSYCH TELEPHONE LINEMAN IN TO SPEAK WITH PT.
[2019-04-25 16:35] LABS: SALICYLATE LEVEL 4.1 mg/dL (2.8-20.0)
[2019-04-25] MEDS ORDERED: KETOROLAC 30 MG/1 ML ONE (16:35)
[2019-04-25] MEDS ORDERED: LORazepam 0.5MG TABLET PO ONE (17:00)
[2019-04-25] MEDS ORDERED: KETOROLAC 30 MG/1 ML IM ONE (17:00)
--- NOTE | 2019-04-25 17:15 | NUR ---
ERP AT FOR RECHECK. NEW CLOTHES PROVIDED TO PT.
[2019-04-25 18:00] VITALS: BP 162/126
[2019-04-25] MEDS ORDERED: LORazepam 0.5MG TABLET ONE (18:10)
--- NOTE | 2019-04-25 18:13 | NUR ---
MEAL TRAY PROVIDED TO PT. D/C INSTRUCTIONS, MEDS & F/U APPT RV'WD WITH PT, SHE VERBALIZES UNDERSTANDING. RX GIVEN X2. NEW CLOTHES PROVIDED TO PT. PT'S BELONGINGS RETURNED TO PT IN DOUBLE BAG. CAB VOUCHER PROVIDED TO PT. PT AMBULATED OUT OF ED WITHOUT DIFFICULTY.
== END 2019-04-25 18:17 | disposition home or self-care (01) ==
LOC: ED 17:06
DX: M25.461 Effusion, right knee (principal); M25.561 Pain in right knee; R51 Headache; M25.512 Pain in left shoulder
CPT/HCPCS: 36415; 70450; 72125; 73564; 80307; 96372; 99284; J1885

== ENCOUNTER 2019-06-25 14:23 | Emergency (ER) | payer MEDICAID ==
[~2019-06-25] VITALS: Ht 152.4 cm; Wt 98.0 kg
[2019-06-25 14:32] VITALS: BP 133/69
[2019-06-25] MEDS ORDERED: KETOROLAC 30 MG/1 ML IM ONE (15:00)
[2019-06-25] MEDS ORDERED: HYDROcodone/APAP 5/325 TABLET PO ONE (15:00)
[2019-06-25 15:11] LABS: BASOPHILS # (AUTO) 0.07 x10^3/uL (0-0.1); BASOPHILS % (AUTO) 1 % (0-1); EOSINOPHILS # (AUTO) 0.46 x10^3/uL (0-0.4); EOSINOPHILS % (AUTO) 7 % (1-7); LYMPHOCYTES # (AUTO) 1.49 x10^3/uL (1-3.4); LYMPHOCYTES % (AUTO) 21 % (22-44); MD NO; MEAN CORPUSCULAR HEMOGLOBIN 27.2 pg (27.0-34.8); MEAN CORPUSCULAR HGB CONC 32.9 g/dL (32.4-35.8); MEAN CORPUSCULAR VOLUME 82.7 fL (80-100); MEAN PLATELET VOLUME 7.7 fL (7.4-10.4); MONOCYTES # (AUTO) 0.95 x10^3/uL (0.2-0.8); MONOCYTES % (AUTO) 14 % (2-9); NEUTROPHILS # (AUTO) 4.06 x10^3/uL (1.8-6.8); NEUTROPHILS % (AUTO) 58 % (42-75); PLATELET COUNT 436 x10^3/uL (130-400); RED BLOOD COUNT 5.17 x10^6/uL (3.82-5.3); RED CELL DISTRIBUTION WIDTH 13.3 % (9.6-15.2)
[2019-06-25] MEDS ORDERED: HYDROcodone/APAP 5/325 TABLET ONE ×2 (15:15→15:17)
[2019-06-25] MEDS ORDERED: SULFAMETH./TRIMETHOPRIM DS 800MG/160MG TABLET ONE (15:15)
[2019-06-25] MEDS ORDERED: KETOROLAC 30 MG/1 ML ONE (15:15)
[2019-06-25 15:19] LABS: ALBUMIN 3.1 g/dL (3.4-5.0); ANION GAP 8 mmol/L (5-15); CALCIUM 8.8 mg/dL (8.5-10.1); CHLORIDE 106 mmol/L (98-107); CREATININE 0.78 mg/dL (0.55-1.02)
[2019-06-25] MEDS ORDERED: SULFAMETH./TRIMETHOPRIM DS 800MG/160MG TABLET PO ONE (15:30)
--- NOTE | 2019-06-25 15:32 | NUR ---
PT MEDICATED PER May.20 RIGHTS VERIFIED PRIOR.
--- NOTE | 2019-06-25 15:32 | NUR ---
Ciera cancino in [facility] - 06/25/19 at 1533 by MAYNOR PT TO BE D/C
--- NOTE | 2019-06-25 15:51 | NUR ---
GIVEN D/C PAPERWORK. VERBALIZED UNDERSTANDING. AMBULATED OUT OF DEPARTMENT WITH STEADY GAIT.
== END 2019-06-25 15:52 | disposition home or self-care (01) ==
LOC: ED 15:17
DX: L02.01 Cutaneous abscess of face (principal); L02.412 Cutaneous abscess of left axilla; L02.411 Cutaneous abscess of right axilla; L02.11 Cutaneous abscess of neck; J06.9 Acute upper respiratory infection, unspecified; R50.9 Fever, unspecified; I10 Essential (primary) hypertension; F17.200 Nicotine dependence, unspecified, uncomplicated
CPT/HCPCS: 36415; 71045; 80048; 82040; 85025; 96372; 99284; J1885

== ENCOUNTER 2019-10-06 10:08 | Emergency (ER) | payer MEDICAID ==
[~2019-10-06] VITALS: Ht 152.4 cm; Wt 80.0 kg
[2019-10-06 10:09] VITALS: BP 136/81
[2019-10-06] MEDS ORDERED: ACETAMINOPHEN 500 MG TABLET ONE (10:18)
--- NOTE | 2019-10-06 10:27 | NUR ---
PT DC WITH ABX. PT COMPLANED ABOUT NOT GETTING "PAIN MEDICATION" EVEN THOUGH SHE WAS GIVEN TYLENOL. PT WAS ALSO UPSET ABOUT NOT GETTING MUSCLE RELAXERS. [facility]
[2019-10-06] MEDS ORDERED: ACETAMINOPHEN 500 MG TABLET PO ONE (10:30)
== END 2019-10-06 10:29 | disposition home or self-care (01) ==
LOC: ED 10:20
DX: L02.413 Cutaneous abscess of right upper limb (principal); L02.416 Cutaneous abscess of left lower limb; L02.414 Cutaneous abscess of left upper limb; L02.415 Cutaneous abscess of right lower limb; F15.10 Other stimulant abuse, uncomplicated; J44.9 Chronic obstructive pulmonary disease, unspecified; I10 Essential (primary) hypertension; Z90.49 Acquired absence of other specified parts of digestive tract
CPT/HCPCS: 99283

== ENCOUNTER 2019-12-01 12:49 | Emergency (ER) | payer MEDICAID ==
[~2019-12-01] VITALS: Ht 152.4 cm; Wt 100.0 kg
[2019-12-01 12:53] VITALS: BP 150/71
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
[2019-12-01] MEDS ORDERED: OXYcodone/APAP 5/325MG TABLET ONE (13:15)
[2019-12-01] MEDS ORDERED: OXYcodone/APAP 5/325MG TABLET PO ONE (13:30)
--- NOTE | 2019-12-01 13:39 | NUR ---
Pt medicated for pain, pt requesting food. Pt reports she is not sure if the pill will touch her pain.
--- NOTE | 2019-12-01 14:31 | NUR ---
Chart up for recheck
--- NOTE | 2019-12-01 14:51 | NUR ---
Provider informed pt requesting more pain control. Pt also requesting home transport. Pt informed of home transport by mt or [facility] avaible through her insurance.
--- NOTE | 2019-12-01 14:54 | NUR ---
Patient/Caregiver given discharge instructions and they have confirmed that they understand the instructions. Patient ambulatory with steady gait.
== END 2019-12-01 15:10 | disposition home or self-care (01) ==
LOC: ED 14:30
DX: S09.90XA Unspecified injury of head, initial encounter (principal); M25.562 Pain in left knee; M79.662 Pain in left lower leg; J43.9 Emphysema, unspecified; I10 Essential (primary) hypertension; Y04.8XXA Assault by other bodily force, initial encounter; Y93.89 Activity, other specified; Y92.009 Unspecified place in unspecified non-institutional (private) residence as the place of occurrence of the external cause; Y99.8 Other external cause status
CPT/HCPCS: 70450; 99285

== ENCOUNTER 2019-12-02 13:03 | Emergency (ER) | payer MEDICAID ==
[~2019-12-02] VITALS: Ht 152.4 cm; Wt 99.0 kg
[2019-12-02 13:03] VITALS: BP 121/67
[2019-12-02] MEDS ORDERED: HYDROcodone/APAP 5/325 TABLET ONE (13:27)
[2019-12-02] MEDS ORDERED: MAALOX/HYOSCYAMINE/LIDOCAINE 45 ML BTL ONE (13:27)
[2019-12-02] MEDS ORDERED: MAALOX/HYOSCYAMINE/LIDOCAINE 45 ML BTL PO ONE (13:30)
[2019-12-02] MEDS ORDERED: HYDROcodone/APAP 5/325 TABLET PO ONE (13:30)
--- NOTE | 2019-12-02 13:51 | NUR ---
Patient given VERBAL discharge instructions and they have confirmed that they understand the instructions. Patient ambulatory with steady gait. Left prior to receiving d/c instructions.
== END 2019-12-02 13:54 | disposition home or self-care (01) ==
LOC: ED 13:25
DX: S86.112A Strain of other muscle(s) and tendon(s) of posterior muscle group at lower leg level, left leg, initial encounter (principal); M79.662 Pain in left lower leg; J44.9 Chronic obstructive pulmonary disease, unspecified; I10 Essential (primary) hypertension; F17.200 Nicotine dependence, unspecified, uncomplicated; Z90.49 Acquired absence of other specified parts of digestive tract; X58.XXXA Exposure to other specified factors, initial encounter; Y93.89 Activity, other specified; Y92.89 Other specified places as the place of occurrence of the external cause; Y99.8 Other external cause status
CPT/HCPCS: 99283

== ENCOUNTER 2020-06-05 13:09 | Inpatient (IN) | payer MEDICAID ==
[~2020-06-05] VITALS: Ht 152.4 cm; Wt 105.7 kg
[~2020-06-05 13:09] MED LIST changes: -HYDR-3245 PO; +HYDR1TAB53 PO
--- NOTE | 2020-06-05 13:41 | NUR ---
PT BIB [facility]. PER REPORT, PT HAS RLQ AND N/V/D X3 DAYS. PT STATED THAT SHE HAS SOME BLOOD IN STOOL AND PAINFUL URINATION. PT STATES PAIN RADIATES TO BACK. PT DENIES ANY SOB, CP OR FEVER.
[2020-06-05] MEDS ORDERED: MORPHINE SULFATE 4 MG/ML, 1ML ONE ×3 (13:50→18:27)
[2020-06-05] MEDS ORDERED: ONDANSETRON 2MG/ML, 2ML ONE ×3 (13:50→22:16)
[2020-06-05] MEDS: MORPHINE SULFATE 4 MG/ML, 1ML IVPush PRN ×2 (13:52→14:46)
--- NOTE | 2020-06-05 13:59 | NUR ---
PT TO IMAGING
[2020-06-05] MEDS ORDERED: ONDANSETRON 2MG/ML, 2ML IVPush ONE ×2 (14:00→18:30)
[2020-06-05] MEDS ORDERED: SODIUM CHLORIDE FLUSH 10ML SYR IVF ONE (14:00)
[2020-06-05 14:03] LABS: BASOPHILS % (AUTO) 1 % (0-1); EOSINOPHILS % (AUTO) 0 % (1-7); LYMPHOCYTES % (AUTO) 7 % (22-44); MEAN CORPUSCULAR HEMOGLOBIN 26.8 pg (27.0-34.8); MEAN CORPUSCULAR HGB CONC 33.6 g/dL (32.4-35.8); MEAN PLATELET VOLUME 7.1 fL (7.4-10.4); MONOCYTES % (AUTO) 10 % (2-9); NEUTROPHILS % (AUTO) 82 % (42-75); PLATELET COUNT 428 x10^3/uL (130-400); RED BLOOD COUNT 5.11 x10^6/uL (3.82-5.3)
[2020-06-05 14:16] LABS: ALANINE AMINOTRANSFERASE 23 U/L (12-78); ALBUMIN 3.1 g/dL (3.4-5.0); ANION GAP 7 mmol/L (5-15); CALCIUM 9.1 mg/dL (8.5-10.1); CHLORIDE 105 mmol/L (98-107); CREATININE 1.33 mg/dL (0.55-1.02)
[2020-06-05 14:19] LABS: ALKALINE PHOSPHATASE 126 U/L (45-117); BILIRUBIN,TOTAL 0.6 mg/dL (0.2-1.0); TOTAL PROTEIN 7.6 g/dL (6.4-8.2)
[2020-06-05 14:26] LABS: MD SCAN
--- NOTE | 2020-06-05 14:41 | NUR ---
PT EDUCATED THAT URINE SAMPLE IS NEEDED. PT UP TO COMMODE, BUT ANABLE TO URINATE AT THIS TIME. WILL TRY AGAIN.
--- NOTE | 2020-06-05 14:57 | NUR ---
REPORT GIVEN TO SENTHIL RODRIGUEZ
[2020-06-05] MEDS ORDERED: OMNIPAQUE 350 MG/ML, 100ML BOTTLE ONE (15:00)
[2020-06-05 16:24] LABS: MICROSCOPIC AUTO
[2020-06-05] MEDS ORDERED: SODIUM CHLORIDE 0.9% 1,000 ML IV ONE (16:30)
--- NOTE | 2020-06-05 16:31 | NUR ---
pt now resting comfortably in bed, arousable to tactile stimulation, no signs or symptoms of acute dsitress noted respirations even and unlabored. pt noted to desat on room air, given o2 via nasal cannula at 2l/min with spo2 improving to 97%. pt and updated on plan of care, verbalize understanding and agreement. ivf hung as ordered, infusing well at left hand. call light within reach bed rails up bilatrerally.
[2020-06-05 17:31] LABS: MICROSCOPIC INDICATED
[2020-06-05] MEDS ORDERED: CEFTRIAXONE PMX 1GM/50ML 50 ML ONE (18:26)
[2020-06-05] MEDS ORDERED: CEFTRIAXONE PMX 1GM/50ML 50 ML IV ONE (18:30)
[2020-06-05] MEDS ORDERED: MORPHINE SULFATE 4 MG/ML, 1ML IVPush PRN (18:30)
[2020-06-05] MEDS ORDERED: PHARMACY MAY ADJ FOR RENAL FX MC PRN (19:30)
[2020-06-05] MEDS ORDERED: ONDANSETRON 2MG/ML, 2ML IVPush PRN (19:30)
[2020-06-05] MEDS ORDERED: morphine SULFATE 10 MG/ML, 1ML IV PRN (19:30)
[2020-06-05 19:31] VITALS: BP 144/85
[2020-06-05] MEDS ORDERED: OMNIPAQUE 350 MG/ML, 50 ML BOTTLE ONE (20:16)
[2020-06-05] MEDS ORDERED: FENTANYL PF 100 MCG/2ML ONE ×2 (21:17→22:05)
[2020-06-05] MEDS ORDERED: MIDAZOLAM 1 MG/ML, 2ML ONE (21:17)
[2020-06-05] MEDS ORDERED: FENTANYL PF 100 MCG/2ML IV PRN (21:30)
[2020-06-05] MEDS ORDERED: ACETAMINOPHEN 325 MG TABLET PO PRN (21:30)
[2020-06-05] MEDS ORDERED: LABETALOL 5MG/ML, 20ML IV PRN (21:30)
[2020-06-05] MEDS ORDERED: ALBUTEROL SULFATE 2.5 MG/3 ML NPPB PRN (21:30)
[2020-06-05] MEDS ORDERED: hydrALAzine 20 MG/ML, 1ML IV PRN (21:30)
[2020-06-05] MEDS ORDERED: PROMETHAZINE 25 MG/ML, 1ML IVPush PRN (21:30)
[2020-06-05] MEDS ORDERED: OXYcodone 5 MG/5 ML ORAL.SOL UDC PO PRN (21:30)
[2020-06-05] MEDS ORDERED: MEPERIDINE/PF 25MG/0.5ML IVPush PRN (21:30)
[2020-06-05] MEDS ORDERED: HYDROmorphone 1 MG/ML, 1ML INJ IVPush PRN (21:30)
[2020-06-05] MEDS ORDERED: LORazepam 2 MG/ML, 1ML IVPush PRN (21:30)
[2020-06-05] MEDS ORDERED: PROPOFOL 10 MG/ML, 20ML ONE (22:16)
[2020-06-05] MEDS ORDERED: LIDOCAINE-MPF 2% ,5ML ONE (22:16)
[2020-06-05] MEDS ORDERED: DEXAMETHASONE 4 MG/ML, 1ML ONE (22:16)
[2020-06-05] MEDS ORDERED: SUCCINYLCHOLINE 20 MG/ML, 10ML ONE (22:16)
[2020-06-06] MEDS ORDERED: LABETALOL 5MG/ML, 20ML IVPush PRN
[2020-06-06] MEDS ORDERED: ACETAMINOPHEN 325 MG TABLET PO PRN
[2020-06-06] MEDS ORDERED: HYDROcodone/APAP 5/325 TABLET PO PRN
[2020-06-06] MEDS: LACTATED RINGERS 1,000 ML IV SCH ×4 (00:10→23:50)
[2020-06-06] MEDS: OXYcodone/APAP 5/325MG TABLET PO PRN ×5 (01:35→23:44)
[2020-06-06] MEDS: PHENAZOPYRIDINE 100 MG TABLET PO PRN ×2 (01:35→16:40)
[2020-06-06] MEDS: HEPARIN 5,000 UNITS/ML, 1ML SQ SCH ×3 (01:41→18:28)
[2020-06-06 02:00] VITALS: BP 137/82
[2020-06-06] MEDS ORDERED: ALBUTEROL HFA 90 MCG/SPRAY INH PRN (02:00)
[2020-06-06 04:42] LABS: BASOPHILS % (AUTO) 0 % (0-1); EOSINOPHILS % (AUTO) 0 % (1-7); LYMPHOCYTES % (AUTO) 4 % (22-44); MEAN CORPUSCULAR HGB CONC 33.2 g/dL (32.4-35.8); MEAN PLATELET VOLUME 7.3 fL (7.4-10.4); MONOCYTES % (AUTO) 3 % (2-9); NEUTROPHILS % (AUTO) 93 % (42-75); PLATELET COUNT 366 x10^3/uL (130-400); RED BLOOD COUNT 4.76 x10^6/uL (3.82-5.3); RED CELL DISTRIBUTION WIDTH 14.2 % (9.6-15.2)
[2020-06-06 04:54] LABS: ANION GAP 5 mmol/L (5-15); CHLORIDE 106 mmol/L (98-107)
[2020-06-06 04:56] LABS: CREATININE 1.16 mg/dL (0.55-1.02)
[2020-06-06 05:12] LABS: MD SCAN
[2020-06-06 07:27] VITALS: BP 146/80
[2020-06-06] MEDS: SENNA/DOCUSATE TABLET PO SCH (09:37)
[2020-06-06] MEDS: FLUOXETINE HCL 20 MG CAPSULE PO SCH ×2 (09:37→21:49)
[2020-06-06 11:39] LABS: AMPHETAMINE SCREEN, URINE Positive (Negative); BARBITURATE SCREEN, URINE Negative (Negative); BENZODIAZEPINE SCREEN, URINE Negative (Negative); CANNABINOID SCREEN, URINE Positive (Negative); COCAINE SCREEN, URINE Negative (Negative); METHADONE SCREEN, URINE Negative (Negative); OPIATE SCREEN, URINE Positive (Negative)
[2020-06-06 12:53] VITALS: BP 136/82
[2020-06-06] MEDS: INSULIN LISPRO 100 UNITS/ML, PEN SQ-INSULIN SCH ×2 (16:25→21:00)
[2020-06-06] MEDS: HYDROXYZINE PAMOATE 50MG CAP PO SCH (17:37)
[2020-06-06] MEDS ORDERED: CEFTRIAXONE PMX 1GM/50ML 50 ML IV SCH (18:30)
[2020-06-06 18:52] VITALS: BP 124/79
[2020-06-07 01:02] VITALS: BP 127/76
[2020-06-07] MEDS: HEPARIN 5,000 UNITS/ML, 1ML SQ SCH (03:37)
[2020-06-07] MEDS: OXYcodone/APAP 5/325MG TABLET PO PRN (05:46)
[2020-06-07 06:25] VITALS: BP 140/84
[2020-06-07 06:59] LABS: BASOPHILS % (AUTO) 1 % (0-1); EOSINOPHILS % (AUTO) 1 % (1-7); LYMPHOCYTES % (AUTO) 19 % (22-44); MEAN CORPUSCULAR HEMOGLOBIN 26.5 pg (27.0-34.8); MEAN CORPUSCULAR HGB CONC 32.5 g/dL (32.4-35.8); MEAN PLATELET VOLUME 7.3 fL (7.4-10.4); MONOCYTES % (AUTO) 10 % (2-9); NEUTROPHILS % (AUTO) 68 % (42-75); PLATELET COUNT 390 x10^3/uL (130-400); RED BLOOD COUNT 4.39 x10^6/uL (3.82-5.3); RED CELL DISTRIBUTION WIDTH 14.1 % (9.6-15.2)
[2020-06-07] MEDS: INSULIN LISPRO 100 UNITS/ML, PEN SQ-INSULIN SCH ×2 (07:00→11:00)
[2020-06-07 07:03] LABS: MD NO
[2020-06-07 07:09] LABS: ALANINE AMINOTRANSFERASE 29 U/L (12-78); ALBUMIN 2.8 g/dL (3.4-5.0); ANION GAP 6 mmol/L (5-15); CALCIUM 9.2 mg/dL (8.5-10.1); CHLORIDE 109 mmol/L (98-107); CREATININE 1.01 mg/dL (0.55-1.02)
[2020-06-07 07:11] LABS: ALKALINE PHOSPHATASE 124 U/L (45-117); BILIRUBIN,TOTAL 0.3 mg/dL (0.2-1.0); TOTAL PROTEIN 7.2 g/dL (6.4-8.2)
[2020-06-07] MEDS: LACTATED RINGERS 1,000 ML IV SCH (08:00)
[2020-06-07] MEDS ORDERED: CEFD300C37 PO (09:07)
[2020-06-07] MEDS: FLUOXETINE HCL 20 MG CAPSULE PO SCH (09:15)
[2020-06-07] MEDS: SENNA/DOCUSATE TABLET PO SCH (09:15)
[2020-06-07] MEDS: HYDROXYZINE PAMOATE 50MG CAP PO SCH (09:16)
[2020-06-07] MEDS: PHENAZOPYRIDINE 100 MG TABLET PO PRN (09:18)
[2020-06-07 11:40] VITALS: BP 113/72
== END 2020-06-07 12:10 | disposition home or self-care (01) | DRG 854 ==
LOC: ED 14:21 → EDIP 18:29 → 4NE 19:21 → DCLOUNGE 06-07 12:03
PROVIDERS: ADMIT Family Medicine; ATTEND Internal Medicine
PROC: 0T9B70Z Drainage of Bladder with Drainage Device, Via Natural or Artificial Opening (ICD-10-PCS; 2020-06-05)
PROC: 0T768DZ Dilation of Right Ureter with Intraluminal Device, Via Natural or Artificial Opening Endoscopic (ICD-10-PCS; principal; 2020-06-05 21:00)
DX: A41.9 Sepsis, unspecified organism (principal); Z68.42 Body mass index [BMI] 45.0-49.9, adult; N17.9 Acute kidney failure, unspecified; N13.6 Pyonephrosis; E66.9 Obesity, unspecified; G47.33 Obstructive sleep apnea (adult) (pediatric); F41.9 Anxiety disorder, unspecified; I10 Essential (primary) hypertension; F31.9 Bipolar disorder, unspecified; J44.9 Chronic obstructive pulmonary disease, unspecified; F19.90 Other psychoactive substance use, unspecified, uncomplicated; Z90.49 Acquired absence of other specified parts of digestive tract; Z20.822 Contact with and (suspected) exposure to COVID-19
CPT/HCPCS: 36415; 74018; 74021; 76000; 96361; 96374; 99285; J3490; 74177; 80048; 80053; 80307; 81001; 82962; 83036; 83605; 83690; 84443; 85025; 87086; 87635; G0378; J0696; J1100; J1644; J2250; J2405; J2704; J3010; Q9967; C1769; C2617; J0330; J2270; J7030; J7120

== ENCOUNTER 2020-09-15 17:56 | Inpatient (IN) | payer MEDICAID ==
[~2020-09-15] VITALS: Ht 152.4 cm; Wt 114.1 kg
[~2020-09-15 17:56] MED LIST changes: +CEFD300C37 PO
--- NOTE | 2020-09-15 18:11 | NUR ---
BIBA FOR RUQ AND FLANK PAIN. PT HAS HAD KIDNEY STONES ON AND OFF X 6 WEEKS WITH STENT PLACED. HX OF COPD 3 L BASELINE. EMS PLACED PIC 20 GAUGE IN LEFT HAND AND GAVE 100 MCG FENTANYL AND 4 MG ZOFRAN.
[2020-09-15] MEDS ORDERED: SODIUM CHLORIDE 0.9% 1,000 ML IV ONE (18:30)
[2020-09-15] MEDS ORDERED: SODIUM CHLORIDE FLUSH 10ML SYR IVF ONE (18:30)
[2020-09-15] MEDS ORDERED: HYDROmorphone 1 MG/ML, 1ML INJ IV ONE ×2 (18:30→21:00)
[2020-09-15] MEDS ORDERED: ONDANSETRON 2MG/ML, 2ML IVPush ONE (18:30)
[2020-09-15] MEDS ORDERED: ONDANSETRON 2MG/ML, 2ML ONE (18:50)
[2020-09-15] MEDS ORDERED: HYDROmorphone 1 MG/ML, 1ML INJ ONE ×2 (18:50→20:40)
[2020-09-15 18:55] LABS: BASOPHILS % (AUTO) 0 % (0-1); EOSINOPHILS % (AUTO) 6 % (1-7); LYMPHOCYTES % (AUTO) 21 % (22-44); MEAN CORPUSCULAR HGB CONC 33.5 g/dL (32.4-35.8); MEAN PLATELET VOLUME 7.3 fL (7.4-10.4); MONOCYTES % (AUTO) 9 % (2-9); NEUTROPHILS % (AUTO) 64 % (42-75); PLATELET COUNT 476 x10^3/uL (130-400); RED BLOOD COUNT 4.69 x10^6/uL (3.82-5.3); RED CELL DISTRIBUTION WIDTH 15.9 % (9.6-15.2)
[2020-09-15 19:05] LABS: ALBUMIN 3.1 g/dL (3.4-5.0); ANION GAP 5 mmol/L (5-15); CALCIUM 8.9 mg/dL (8.5-10.1); CHLORIDE 106 mmol/L (98-107)
[2020-09-15 19:09] LABS: ALANINE AMINOTRANSFERASE 19 U/L (12-78); ALKALINE PHOSPHATASE 144 U/L (45-117); BILIRUBIN,TOTAL 0.2 mg/dL (0.2-1.0); CREATININE 0.99 mg/dL (0.55-1.02); TOTAL PROTEIN 7.4 g/dL (6.4-8.2)
[2020-09-15 20:16] LABS: MICROSCOPIC AUTO
[2020-09-15] MEDS ORDERED: CEFTRIAXONE 1,000 MG in DEXTROSE 5% 50 ML IVPB ONE (21:00)
[2020-09-15] MEDS ORDERED: LURA120T PO (21:23)
[2020-09-15] MEDS ORDERED: HALO5TAB5 PO (21:24)
--- NOTE | 2020-09-15 21:26 | NUR ---
PT UP TO RESTROOM WITH STEADY INDEPENDENT GAIT.
[2020-09-15] MEDS ORDERED: SODIUM CHLORIDE FLUSH 10ML SYR IVF PRN (21:30)
--- NOTE | 2020-09-15 22:05 | NUR ---
THROUGHPUT RN::DR. ALONSO AWARE OF PT.
[2020-09-15 22:19] VITALS: BP 110/63
[2020-09-15 23:39] VITALS: BP 110/63
[2020-09-16] MEDS ORDERED: ONDANSETRON 2MG/ML, 2ML IVPush PRN
[2020-09-16] MEDS ORDERED: SODIUM CHLORIDE 0.9% 1,000 ML IV SCH
[2020-09-16] MEDS ORDERED: LABETALOL 5MG/ML, 20ML IVPush PRN
[2020-09-16] MEDS ORDERED: ACETAMINOPHEN 325 MG TABLET PO PRN
[2020-09-16] MEDS ORDERED: MELATONIN 5 MG TABLET PO PRN
[2020-09-16] MEDS ORDERED: CEFTRIAXONE 1,000 MG in DEXTROSE 5% 50 ML IVPB SCH
[2020-09-16] MEDS: TRAZODONE 100MG TABLET PO SCH ×2 (00:28)
[2020-09-16] MEDS: morphine SULFATE 10 MG/ML, 1ML IVPush PRN ×2 (00:42→04:44)
[2020-09-16 01:56] VITALS: BP 90/65
[2020-09-16 06:47] LABS: BASOPHILS % (AUTO) 1 % (0-1); EOSINOPHILS % (AUTO) 6 % (1-7); LYMPHOCYTES % (AUTO) 18 % (22-44); MEAN CORPUSCULAR HEMOGLOBIN 27.1 pg (27.0-34.8); MEAN CORPUSCULAR HGB CONC 33.5 g/dL (32.4-35.8); MEAN PLATELET VOLUME 7.5 fL (7.4-10.4); MONOCYTES % (AUTO) 10 % (2-9); NEUTROPHILS % (AUTO) 65 % (42-75); PLATELET COUNT 369 x10^3/uL (130-400); RED BLOOD COUNT 4.65 x10^6/uL (3.82-5.3); RED CELL DISTRIBUTION WIDTH 16.1 % (9.6-15.2)
[2020-09-16 06:50] LABS: ANION GAP 8 mmol/L (5-15); CALCIUM 8.1 mg/dL (8.5-10.1); CHLORIDE 109 mmol/L (98-107); CREATININE 0.88 mg/dL (0.55-1.02)
[2020-09-16 08:14] VITALS: BP 110/72
[2020-09-16] MEDS ORDERED: SENNA/DOCUSATE TABLET PO SCH (09:00)
== END 2020-09-16 09:03 | disposition left against medical advice (07) | DRG 872 ==
LOC: ED 21:10 → EDIP 21:16 → ED 21:43 → 3N 22:13
PROVIDERS: ADMIT Family Medicine; ATTEND Family Medicine
PROC: 0T9B70Z Drainage of Bladder with Drainage Device, Via Natural or Artificial Opening (ICD-10-PCS; principal; 2020-09-15)
DX: A41.9 Sepsis, unspecified organism (principal); N10 Acute pyelonephritis; Z68.42 Body mass index [BMI] 45.0-49.9, adult; F12.90 Cannabis use, unspecified, uncomplicated; F17.200 Nicotine dependence, unspecified, uncomplicated; F31.9 Bipolar disorder, unspecified; I10 Essential (primary) hypertension; Z66 Do not resuscitate; J44.9 Chronic obstructive pulmonary disease, unspecified; E66.9 Obesity, unspecified; F19.10 Other psychoactive substance abuse, uncomplicated; Z20.822 Contact with and (suspected) exposure to COVID-19; Z90.49 Acquired absence of other specified parts of digestive tract; Z72.89 Other problems related to lifestyle
CPT/HCPCS: 36415; 74176; 80048; 80053; 81001; 83605; 83690; 85025; 87040; 87077; 87086; 87186; 87635; 96374; 96375; G0378; J0696; J1170; J2405; J2270; J7030

== ENCOUNTER 2020-09-21 16:53 | Emergency (ER) | payer MEDICAID ==
[~2020-09-21] VITALS: Ht 152.4 cm; Wt 101.0 kg
[~2020-09-21 16:53] MED LIST changes: +HALO5TAB5 PO; +LURA120T PO
[2020-09-21 17:19] LABS: MICROSCOPIC INDICATED
[2020-09-21 17:29] LABS: BASOPHILS % (AUTO) 0 % (0-1); EOSINOPHILS % (AUTO) 5 % (1-7); LYMPHOCYTES % (AUTO) 22 % (22-44); MEAN CORPUSCULAR HEMOGLOBIN 26.7 pg (27.0-34.8); MEAN CORPUSCULAR HGB CONC 33.2 g/dL (32.4-35.8); MEAN PLATELET VOLUME 7.2 fL (7.4-10.4); MONOCYTES % (AUTO) 9 % (2-9); NEUTROPHILS % (AUTO) 63 % (42-75); PLATELET COUNT 464 x10^3/uL (130-400); RED BLOOD COUNT 4.82 x10^6/uL (3.82-5.3); RED CELL DISTRIBUTION WIDTH 15.5 % (9.6-15.2)
[2020-09-21] MEDS ORDERED: KETOROLAC 30 MG/1 ML IM ONE (17:30)
[2020-09-21] MEDS ORDERED: ONDANSETRON ODT 4 MG PO ONE (17:30)
[2020-09-21] MEDS ORDERED: HYDROcodone/APAP 5/325 TABLET PO ONE (17:30)
[2020-09-21 17:40] LABS: ALBUMIN 3.1 g/dL (3.4-5.0); ANION GAP 4 mmol/L (5-15); CHLORIDE 107 mmol/L (98-107)
[2020-09-21 17:44] LABS: ALANINE AMINOTRANSFERASE 21 U/L (12-78); ALKALINE PHOSPHATASE 141 U/L (45-117); BILIRUBIN,TOTAL 0.3 mg/dL (0.2-1.0); CREATININE 1.13 mg/dL (0.55-1.02); TOTAL PROTEIN 7.6 g/dL (6.4-8.2)
[2020-09-21] MEDS ORDERED: ONDANSETRON ODT 4 MG ONE (17:49)
[2020-09-21] MEDS ORDERED: HYDROcodone/APAP 5/325 TABLET ONE (17:49)
[2020-09-21] MEDS ORDERED: KETOROLAC 30 MG/1 ML ONE (17:49)
--- NOTE | 2020-09-21 17:54 | NUR ---
INSTRUCTOR PRODUCT INSPECTION PER MAR.
--- NOTE | 2020-09-21 18:15 | NUR ---
PT GOING TO CT
--- NOTE | 2020-09-21 18:24 | NUR ---
N/O FOR 2 SETS BLOOD CX, IVF, AND ABX.
[2020-09-21] MEDS ORDERED: SODIUM CHLORIDE 0.9% 1,000ML IVBOLUS ONE (18:30)
[2020-09-21] MEDS ORDERED: SODIUM CHLORIDE FLUSH 10ML SYR IVF ONE (18:30)
[2020-09-21] MEDS ORDERED: CEFTRIAXONE 1,000 MG in DEXTROSE 5% 50 ML IVPB ONE (18:30)
--- NOTE | 2020-09-21 18:30 | NUR ---
PT BACK FROM CT. IV ABX TO START AFTER BLOOD CX COLLECTED.
--- NOTE | 2020-09-21 18:53 | NUR ---
IV ABX STARTED PER MAY. 2 SETS BLOOD CX COLLECTED PRIOR TO ADMIN. IVF RUNNING. ERMD AT BEDSIDE TO UPDATE PT ON POC.
[2020-09-21 18:54] VITALS: BP 123/73
== END 2020-09-21 20:01 | disposition home or self-care (01) ==
LOC: ED 19:55
DX: N10 Acute pyelonephritis (principal); R10.9 Unspecified abdominal pain; R11.2 Nausea with vomiting, unspecified; M54.9 Dorsalgia, unspecified; I10 Essential (primary) hypertension; J44.9 Chronic obstructive pulmonary disease, unspecified; E66.9 Obesity, unspecified; Z90.49 Acquired absence of other specified parts of digestive tract
CPT/HCPCS: 36415; 74176; 80053; 81001; 83605; 83690; 85025; 87040; 87077; 87086; 96365; 96372; 99285; J0696; J1885; J7030; Q0162; 87186

== ENCOUNTER 2020-09-28 19:09 | Emergency (ER) | payer MEDICAID ==
[~2020-09-28] VITALS: Ht 152.4 cm; Wt 99.9 kg
[2020-09-28 19:55] VITALS: BP 133/89
[2020-09-28 20:43] LABS: BASOPHILS % (AUTO) 0 % (0-1); EOSINOPHILS % (AUTO) 6 % (1-7); LYMPHOCYTES % (AUTO) 25 % (22-44); MEAN CORPUSCULAR HEMOGLOBIN 27.1 pg (27.0-34.8); MEAN CORPUSCULAR HGB CONC 33.5 g/dL (32.4-35.8); MEAN PLATELET VOLUME 7.2 fL (7.4-10.4); MONOCYTES % (AUTO) 8 % (2-9); NEUTROPHILS % (AUTO) 60 % (42-75); PLATELET COUNT 532 x10^3/uL (130-400); RED BLOOD COUNT 4.96 x10^6/uL (3.82-5.3); RED CELL DISTRIBUTION WIDTH 15.4 % (9.6-15.2)
[2020-09-28 20:55] LABS: ALBUMIN 3.3 g/dL (3.4-5.0); ANION GAP 7 mmol/L (5-15); CALCIUM 9.4 mg/dL (8.5-10.1); CHLORIDE 104 mmol/L (98-107); CREATININE 0.89 mg/dL (0.55-1.02)
--- NOTE | 2020-09-28 21:28 | NUR ---
patient signed AMA
== END 2020-09-28 21:29 | disposition left against medical advice (07) ==
LOC: ED 19:30
DX: R30.0 Dysuria (principal); R10.30 Lower abdominal pain, unspecified
CPT/HCPCS: 36415; 80048; 82040; 85025; 99283

== ENCOUNTER 2020-11-02 18:41 | Emergency (ER) | payer MEDICAID ==
[~2020-11-02] VITALS: Ht 152.4 cm; Wt 105.0 kg
[2020-11-02 19:11] VITALS: BP 147/80
[2020-11-02 20:29] LABS: BASOPHILS % (AUTO) 3 % (0-1); EOSINOPHILS % (AUTO) 8 % (1-7); LYMPHOCYTES % (AUTO) 28 % (22-44); MEAN CORPUSCULAR HGB CONC 33.4 g/dL (32.4-35.8); MEAN PLATELET VOLUME 7.4 fL (7.4-10.4); MONOCYTES % (AUTO) 9 % (2-9); NEUTROPHILS % (AUTO) 52 % (42-75); PLATELET COUNT 426 x10^3/uL (130-400); RED BLOOD COUNT 4.97 x10^6/uL (3.82-5.3); RED CELL DISTRIBUTION WIDTH 15.6 % (9.6-15.2)
[2020-11-02 20:36] LABS: ALBUMIN 3.2 g/dL (3.4-5.0); ANION GAP 6 mmol/L (5-15); CALCIUM 9.1 mg/dL (8.5-10.1); CHLORIDE 104 mmol/L (98-107); CREATININE 1.22 mg/dL (0.55-1.02)
--- NOTE | 2020-11-02 22:15 | NUR ---
NIL X1 FOR RE-VITALS
--- NOTE | 2020-11-02 22:30 | NUR ---
NIL X1 FOR RE-VITALS Addendum: 11/02/20 at 2230 by MINGALLS DESHAWN X2 FOR RE-VITALS
--- NOTE | 2020-11-02 22:42 | NUR ---
NIL X3 FOR RE-VITALS. pt eloped
== END 2020-11-02 22:43 | disposition left against medical advice (07) ==
LOC: ED 19:00
DX: M54.5 Low back pain (principal); R20.2 Paresthesia of skin
CPT/HCPCS: 36415; 80048; 82040; 85025; 99283

== ENCOUNTER 2020-12-02 16:18 | Emergency (ER) | payer MEDICAID ==
[~2020-12-02] VITALS: Ht 152.4 cm; Wt 100.0 kg
[2020-12-02 16:26] VITALS: BP 128/72
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
--- NOTE | 2020-12-02 16:43 | NUR ---
PER FRANKLIN ATKINSON PT IS CLEARED BY PSYCH. PER GERA GARG, PLAN IS TO ARRANGE TRANSPORT BY [facility] BACK TO [facility].
[2020-12-02] MEDS ORDERED: LORazepam 0.5MG TABLET ONE (16:51)
[2020-12-02] MEDS ORDERED: LORazepam 0.5MG TABLET PO ONE (17:00)
--- NOTE | 2020-12-02 17:05 | NUR ---
REPORT TO FRANCISCO NDIAYE AT [facility].
--- NOTE | 2020-12-02 17:34 | NUR ---
PT STATES THAT SHE ONLY WEARS O2 AT NIGHT. 93% RA. PER GERA GARG OK TO SEND PT BACK TO [facility] VIA [facility].
--- NOTE | 2020-12-02 17:40 | NUR ---
JENNIFER CALLED FOR PT.
--- NOTE | 2020-12-02 17:52 | NUR ---
PT VERBALIZED UNDERSTANDING OF DC INSTRUCTIONS. AMBULATORY W/ A STEADY GAIT USING HOME CANE. PROVIDED TAXI VOUCHER. RESP EVEN AND UNLABORED, JETHRO.
== END 2020-12-02 17:56 | disposition home or self-care (01) ==
LOC: ED 16:38
DX: R45.851 Suicidal ideations (principal); I10 Essential (primary) hypertension; J43.9 Emphysema, unspecified; F31.9 Bipolar disorder, unspecified; Z90.49 Acquired absence of other specified parts of digestive tract
CPT/HCPCS: 99285